=== PATIENT | female | born 1950 | race Caucasian/White ===

== ENCOUNTER 2018-12-29 15:46 | Emergency (ER) | payer MEDICARE ==
[2018-12-29 16:04] VITALS: BP 171/108
--- NOTE | 2018-12-29 16:11 | ERPHSYRPT ---
- History of Present Illness Time Seen by Provider: 12/29/18 15:50 Source: patient, family Exam Limitations: no limitations Patient Subjective Stated Complaint: PT STATES "I HAVE THE FLU". PT REPORTS 2 DAYS OF "COUGH SO BAD I START HEAVING, BUT I HAVEN'T THROWN UP". PT REPORTS WHITE PRODUCTIVE COUGH. DENIES RESPIRATORY HX. Triage Nursing Assessment: PINK/WARM/DRY, RESP EASY, A&OX4, WHEELED TO ROOM BY FAMILY, NO DISTRESS NOTED AT THIS TIME. Physician History: family has been sick with the flu- felt feverish and chills with a little sore throat for a couple days with a cough productive clear- no N&V; no CP- no sob; other owusu healthy and no other complaints except for a small burn area left flank form a heating pad Timing/Duration: yesterday (onset), gradual onset Cough Quality/Degree: mild, dry cough Possible Cause: no prior episodes Modifying Factors: Improves With: coughing Associated Symptoms: fever, chills, cough, nasal congestion, sore throat International travel in last 2 weeks: No Allergies/Adverse Reactions: No Known Drug Allergies Allergy (Verified 12/29/18 15:53) Home Medications: Cetirizine HCl [Zyrtec] 10 mg PO DAILY 05/07/13 [History] Guaifenesin [Mucinex] 1,200 mg PO 05/07/13 [History] Lisinopril 40 mg PO 05/07/13 [History] Celecoxib 100 mg PO BID 12/29/18 [History] Hx Tetanus, Diphtheria Vaccination/Date Given: No Hx Influenza Vaccination/Date Given: Yes Hx Pneumococcal Vaccination/Date Given: No Immunizations Up to Date: Yes - Review of Systems Constitutional: Fever, Chills Eyes: No Symptoms Ears, Nose, & Throat: Nose Congestion, Throat Pain, No Ear Pain, No Epistaxis, No Hoarse Respiratory: Cough, No Dyspnea, No Wheezing Cardiac: No Chest Pain, No Edema, No Palpitations, No Syncope Abdominal/Gastrointestinal: No Abdominal Pain, No Nausea, No Vomiting, No Diarrhea Genitourinary Symptoms: No Symptoms Musculoskeletal: No Symptoms Skin: No Symptoms Neurological: No Symptoms Psychological: No Symptoms Endocrine: No Symptoms Hematologic/Lymphatic: No Symptoms Immunological/Allergic: No Symptoms - Past Medical History Pertinent Past Medical History: No Neurological History: No Pertinent History ENT History: No Pertinent History Cardiac History: Hypertension Respiratory History: No Pertinent History Endocrine Medical History: No Pertinent History Musculoskeletal History: No Pertinent History GI Medical History: No Pertinent History History: No Pertinent History Psycho-Social History: No Pertinent History Female Reproductive Disorders: No Pertinent History - Past Surgical History Past Surgical History: Yes Gastrointestinal: Cholecystectomy Female Surgical History: Hysterectomy - Social History Smoking Status: Never smoker Exposure to second hand smoke: Yes Alcohol Use: Socially Drug Use: none Patient Lives Alone: No Significant Family History: no pertinent family hx - Female History Hx Now: No - Nursing Vital Signs Nursing Vital Signs: Initial Vital Signs Temperature 99.1 F 12/29/18 15:56 Pulse Rate 122 H 12/29/18 15:56 Respiratory Rate 20 12/29/18 15:56 Blood Pressure 171/108 12/29/18 15:56 O2 Sat by Pulse Oximetry 97 12/29/18 15:56 Pain Scale Pain Intensity 0 - Physical Exam General Appearance: mild distress, alert, obese Eye Exam: PERRL/EOMI, eyes nml inspection Ears, Nose, Throat Exam: normal ENT inspection, TMs normal, pharynx normal, moist mucous membranes, No pharyngeal erythema, No tonsillar exudate Neck Exam: normal inspection, non-tender, supple, full range of motion, No JVD Respiratory Exam: normal breath sounds, lungs clear, airway intact, wheezing ( few scattered end ex[piratory), No chest tenderness, No respiratory distress, No crackles/rales, No rhonchi, No pleural rub Cardiovascular Exam: regular rate/rhythm, normal heart sounds, normal peripheral pulses, tachycardia (1210), capillary refill <2 sec, No murmur, No edema Gastrointestinal/Abdomen Exam: soft, normal bowel sounds, No tenderness, No guarding, No rebound, No organomegaly Pelvic Exam: not done Rectal Exam: deferred Back Exam: normal inspection, normal range of motion, No CVA tenderness, No rash Extremity Exam: normal inspection, normal range of motion, No amy's sign, No pedal edema Neurologic Exam: alert, oriented x 3, cooperative, 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, normal mood/affect, nml cerebellar function, nml station & gait Skin Exam: normal color, warm, dry, cyanosis, other (small scabbed burn post left flank 2x3 cm), No rash SpO2 Interpretation: normal SpO2: 98 O2 Delivery: Room Air - Course Nursing assessment & vital signs reviewed: Yes Ordered Tests: Active Orders 24 hr Category Date Time Status Pulse Oximetry (ED) STAT Care 12/29/18 16:05 Active CHEST 1 VIEW (PORTABLE) Stat Exams 12/29/18 16:06 Taken Peak Expiratory Flow Rate ONCE RT 12/29/18 16:17 Active Respiratory Nebulizer STAT RT 12/29/18 16:17 Completed Respiratory Therapy Assessment DAILY RT 12/29/18 16:22 Active Medication Summary Discontinued Medications Generic Name Dose Route Start Last Admin Trade Name Freq PRN Reason Stop Dose Admin Albuterol/Ipratropium 3 ml 12/29/18 16:17 12/29/18 16:25 Duoneb 0.5-3 Mg/3 Ml Neb IH 12/29/18 16:18 3 ml STAT ONE Administration Albuterol/Ipratropium Confirm 12/29/18 16:23 Duoneb 0.5-3 Mg/3 Ml Neb Administered 12/29/18 16:24 Dose 3 ml IH .STK-MED ONE Lab/Rad Data: Laboratory Results 12/29/18 Range/Units 16:14 Influenza Type A Ag NEGATIVE (NEGATIVE) Influenza Type B Ag NEGATIVE (NEGATIVE) RSV (PCR) NEGATIVE (Negative) reviewed - Progress Progress: improved, re-examined (after resp treatment) Air Movement: good Progress Note: 12/29/18 16:42 improved after resp treatment- peak flow pre = 131; post 258; predicted 416; wheezes resolved; breathing and feeling better; labs pending 12/29/18 17:09 recheck and much improved; instructions for tratment of burn as well as heating pad use given; INf A, B and RSV neg 12/29/18 17:11 instructions given after reviewing findings Blood Culture(s) Obtained: No Antibiotics given: No Counseled pt/family regarding: lab results, diagnosis, need for follow-up, rad results - Departure Time of Disposition: 17:11 Departure Disposition: Home Clinical Impression: Asthmatic bronchitis, burn left flank < 1% Condition: Stable Critical Care Time: No Referrals: STACIA KIRK MD [Primary Care Provider] - Instructions: Cough, Adult (DC), [place] Additional Instructions: clean bacitracin; tylenol; vaporizer; neosporin Follow-up with family doctor as directed. Call for appointment. Return if any problems. If you smoke please stop. Call or follow up with your family doctor for assistance if you need it to stop. Please wear your seatbelt when driving. Have a nice day. Thank you for allowing us to participate in your care today. :o) Dr David Dawson Prescriptions: Albuterol 8 gm Mdi Hfa [Ventolin Hfa MDI] 8 gm IH Q6H PRN PRN #1 [email or web address] PRN Reason: Cough
[2018-12-29] MEDS ORDERED: DUONEB 0.5-3 MG/3 ml Neb IH ONE ×2 (16:17→16:23)
[2018-12-29 16:30] VITALS: PULSE 113
[2018-12-29 16:43] VITALS: O2SAT 98
[2018-12-29 16:51] LABS: INFLUENZA A NEGATIVE (NEGATIVE); INFLUENZA B NEGATIVE (NEGATIVE); RESPIRATORY SYNCTIAL VIRUS NEGATIVE (Negative)
--- NOTE | 2018-12-29 20:18 | XRAY ---
Indication: Fever and cough. Comparison: None Portable chest slightly rotated. No focal infiltrate, consolidation, or large effusion. Heart is not enlarged for AP portable technique. Query hiatal hernia. Bony thorax intact with moderate degenerative changes. Impression: Nonacute chest. Query hiatal hernia.
== END 2018-12-29 17:26 | disposition home or self-care (01) ==
LOC: ED 15:46
DX: J45.909 Unspecified asthma, uncomplicated (principal); Z79.899 Other long term (current) drug therapy
CPT/HCPCS: 71045; 87631; 94150; 94640; 99284; A9270-GY

== ENCOUNTER 2019-05-02 20:33 | Emergency (ER) | payer MEDICARE ==
[2019-05-02] MEDS ORDERED: Zithromax 250 MG TABLET PO ONE (23:00)
--- NOTE | 2019-05-02 23:22 | ERPHSYRPT ---
- History of Present Illness Time Seen by Provider: 05/02/19 23:00 Source: patient Exam Limitations: no limitations Patient Subjective Stated Complaint: pt is alert and oriented. pt comes in via wheelchair but ambulates to bed with assistance of a cane. pt states that she has had head congestion, runny nose, and earpain since Monday. pt also states that she has "anxiety and hyperventilates" when she starts feeling bad. pt states that her nasal drainage is yellow in color. pt denies coughing up anything. pt states that she vomited some "phlegm" up today x1. pt lung sounds clear posterior, unable to ausculatate anterior. pt heart tones regular. pt skin is pwd. pt is breathing easily. Triage Nursing Assessment: see above Physician History: 68 y/o obese white female with h/o asthmatic bronchitis using once daily albuterol inhaler and svns. pt noticed 3 day h/o sinus congestion and pressure as well as bilat earaches and yellow nasal drainage. pt states she feels the drainage into back of throat. feels at times she chokes on the phlegm then becomes anxious and hyperventilates. no specific cp. only mild cough. Timing/Duration: gradual onset Severity: mild ENT Location: ear (R), ear (L), nose, throat Prearrival Treatment: no prearrival treatment Modifying Factors: Improves With: albuterol inhaler (helps), albuterol nebulizer (helps) Associated Symptoms: ear pain (R), ear pain (L), nasal congestion/drainage, sinus infection Allergies/Adverse Reactions: No Known Drug Allergies Allergy (Verified 12/29/18 15:53) Home Medications: Cetirizine HCl [Zyrtec] 10 mg PO DAILY 05/07/13 [History] Lisinopril 40 mg PO DAILY 05/07/13 [History] Celecoxib 100 mg PO BID 12/29/18 [History] Hydrocodone/Acetaminophen [Hydrocodone-Acetamin 10-325 mg] 1 tablet PO Q6H PRN PRN 05/02/19 [History] Tizanidine HCl 4 mg PO BID PRN PRN 05/02/19 [History] Hx Tetanus, Diphtheria Vaccination/Date Given: No Hx Influenza Vaccination/Date Given: Yes Hx Pneumococcal Vaccination/Date Given: No Immunizations Up to Date: Yes - Review of Systems Constitutional: No Symptoms Eyes: No Symptoms Ears, Nose, & Throat: Ear Pain (bilat), Nose Congestion, Nose Discharge, Sinus Drainage Respiratory: No Symptoms, No Dyspnea, No Wheezing Cardiac: No Symptoms, No Chest Pain, No Palpitations, No Syncope Abdominal/Gastrointestinal: No Symptoms Genitourinary Symptoms: No Symptoms Musculoskeletal: No Symptoms Skin: No Symptoms Neurological: No Symptoms Psychological: No Symptoms Endocrine: No Symptoms Hematologic/Lymphatic: No Symptoms Immunological/Allergic: No Symptoms All Other Systems: Reviewed and Negative - Past Medical History Pertinent Past Medical History: No Neurological History: No Pertinent History ENT History: No Pertinent History Cardiac History: Hypertension Respiratory History: No Pertinent History Endocrine Medical History: No Pertinent History Musculoskeletal History: Arthritis GI Medical History: No Pertinent History History: No Pertinent History Psycho-Social History: No Pertinent History Female Reproductive Disorders: No Pertinent History - Past Surgical History Past Surgical History: Yes Neuro Surgical History: No Pertinent History Cardiac: No Pertinent History Respiratory: No Pertinent History Gastrointestinal: Cholecystectomy Genitourinary: No Pertinent History Musculoskeletal: No Pertinent History Female Surgical History: Hysterectomy - Social History Smoking Status: Never smoker Exposure to second hand smoke: Yes Alcohol Use: Socially Drug Use: none Patient Lives Alone: No Significant Family History: no pertinent family hx - Female History Hx Now: No - Nursing Vital Signs Nursing Vital Signs: Initial Vital Signs Temperature 99.2 F 05/02/19 21:31 Pulse Rate 74 05/02/19 21:31 Respiratory Rate 18 05/02/19 21:31 Blood Pressure 194/86 05/02/19 21:31 O2 Sat by Pulse Oximetry 97 05/02/19 21:31 Pain Scale Pain Intensity 9 - Physical Exam General Appearance: no apparent distress, alert, anxiety Eye Exam: bilateral eye: normal inspection, PERRL, EOMI Ear Exam: bilateral ear: auricle normal, canal normal, TM normal Nasal Exam: normal inspection, discharge, sinus tenderness Throat Exam: normal, pharynx normal Neck Exam: normal inspection, non-tender, supple, full range of motion, trachea midline Cardiovascular/Respiratory Exam: chest non-tender, normal breath sounds, regular rate/rhythm, heart sounds normal Abdominal Exam: non-tender, soft Neurologic Exam: alert, oriented x 3, cooperative, 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, normal mood/affect, nml cerebellar function, nml station & gait, sensation nml Skin Exam: normal color, warm, dry SpO2 Interpretation: normal SpO2: 97 O2 Delivery: Room Air - Course Nursing assessment & vital signs reviewed: Yes Ordered Tests: Medication Summary Generic Name Dose Route Start Last Admin Trade Name Freq PRN Reason Stop Dose Admin Prednisone 20 mg 05/03/19 23:01 Deltasone 20 Mg PO 05/03/19 23:02 STAT ONE Discontinued Medications Generic Name Dose Route Start Last Admin Trade Name Freq PRN Reason Stop Dose Admin Azithromycin 500 mg 05/02/19 23:00 Zithromax 250 Mg Tablet PO 05/02/19 23:01 STAT ONE - Progress Progress: unchanged Counseled pt/family regarding: diagnosis, need for follow-up, rad results - Departure Departure Disposition: Home Clinical Impression: Sinusitis Condition: Stable Critical Care Time: No Referrals: STACIA KIRK MD [Primary Care Provider] - Additional Instructions: drink plenty of fluids. take medications as prescribed. use your albuterol nebulizer 3 times daily for next 48 hours. follow up with primary doctor for further management Prescriptions: Azithromycin 250 mg [Zithromax 250 MG TABLET] 250 mg PO DAILY #4 tablet Prednisone 10 mg [Deltasone 10 mg] 10 mg PO BID #8 tablet
[2019-05-02] MEDS ORDERED: DELTASONE 20 MG ONE (23:48)
[2019-05-02] MEDS ORDERED: Zithromax 250 MG TABLET ONE (23:48)
[2019-05-02 23:54] VITALS: BP 187/85; PULSE 72; O2SAT 100
[2019-05-03] MEDS ORDERED: DELTASONE 20 MG PO ONE (23:01)
== END 2019-05-03 00:05 | disposition home or self-care (01) ==
LOC: ED 20:33
DX: J32.9 Chronic sinusitis, unspecified (principal); I10 Essential (primary) hypertension; Z79.899 Other long term (current) drug therapy
CPT/HCPCS: 99283; A9270-GY